=== PATIENT | male | born 1955 | race American Indian/Alaskan Native ===

== ENCOUNTER 2016-12-13 17:01 | Emergency (ER) | payer MEDICARE, MEDICAID ==
[2016-12-13 17:11] VITALS: RESP 16; TEMP 98; BMI 32.3
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
[2016-12-13 20:20] VITALS: BP 141/98; PULSE 71; O2SAT 98
== END 2016-12-13 20:27 | disposition home or self-care (01) ==
LOC: ED 17:01
DX: Z04.8 Encounter for examination and observation for other specified reasons (principal)

== ENCOUNTER 2016-12-26 01:35 | Emergency (ER) | payer MEDICARE, MEDICAID ==
[2016-12-26 01:47] VITALS: TEMP 97.9
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
[2016-12-26 03:38] VITALS: BMI 28.2
[2016-12-26 05:49] VITALS: BP 120/77; PULSE 56; RESP 18; O2SAT 98
== END 2016-12-26 06:13 | disposition home or self-care (01) ==
LOC: ED 01:35
DX: F91.9 Conduct disorder, unspecified (principal)